=== PATIENT | male | born 1965 | race Caucasian/White ===

== ENCOUNTER 2018-02-02 18:01 | Emergency (ER) | payer OTHER, MEDICAID ==
[2018-02-02] MEDS: ALBUTEROL 0.083% (NEB) 2.5 MG/3 ML AMP HHN (19:20)
[2018-02-02] MEDS: IPRATROPIUM (NEB) 0.5 MG/2.5 ML AMP HHN (19:20)
[2018-02-02] MEDS: ONDANSETRON 4 MG INJ IV (19:26)
[2018-02-02] MEDS: KETOROLAC 30 MG INJ IV (19:26)
[2018-02-02] MEDS: SOD CHLORIDE 0.9% 1,000 ML IV (19:26)
[2018-02-02] MEDS: ACETAMINOPHEN 500 MG TAB PO ×2 (19:26→21:20)
[2018-02-02] MEDS: CEFTRIAXONE 1 GM/50 ML (PMX) 50 ML IVPB (20:31)
== END 2018-02-02 21:30 | disposition home or self-care (01) ==
LOC: FTE 18:01
DX: R50.9 Fever, unspecified (principal); R05 Cough
CPT/HCPCS: 71046; 87400; 94664; 96361; 96365; 96375; 99284-25

== ENCOUNTER 2018-06-20 23:20 | Emergency (ER) | payer OTHER ==
[2018-06-21] MEDS: DEXAMETHASONE 10 MG/ML 1 ML INJ IM (01:22)
[2018-06-21] MEDS: DIPHENHYDRAMINE 50 MG INJ IM (01:23)
[2018-06-21] MEDS: FAMOTIDINE 20 MG TAB PO (01:23)
== END 2018-06-21 01:53 | disposition home or self-care (01) ==
LOC: FTE 23:20
DX: L50.9 Urticaria, unspecified (principal)
CPT/HCPCS: 96372; 99284-25

== ENCOUNTER 2019-02-11 18:51 | Emergency (ER) | payer OTHER ==
[2019-02-11] MEDS: ACETAMINOPHEN 325 MG TAB PO (21:22)
== END 2019-02-11 23:22 | disposition home or self-care (01) ==
LOC: FTE 18:51
DX: R50.9 Fever, unspecified (principal); R05 Cough
CPT/HCPCS: 71045; 87400; 99284-25